=== PATIENT | female | born 1980 | race Two or more races ===

== ENCOUNTER → 2019-04-15 | Outpatient (CLI) | payer MEDICAID ==
[2019-04-15 12:34] LABS: CHOLESTEROL 149.61 mg/dL (0-200); TRIGLYCERIDES 79 mg/dL (<150)
[2019-04-15 12:52] LABS: DIRECT LDL 105 mg/dL (<100)
== END ==
LOC: OD 11:31
PROVIDERS: ATTEND Psychiatry & Neurology Psychiatry
DX: F41.0 Panic disorder [episodic paroxysmal anxiety] (principal)
CPT/HCPCS: 36415; 80061; 83036

== ENCOUNTER → 2019-07-01 | Day surgery (SDC) | payer MEDICAID ==
[~2019-07-01] MED LIST: LIDOCAINE 1% INJ-PF (10 MG/ML) 30 ML SDV ONE
--- NOTE | 2019-07-01 16:02 | RADIOLOGY REPORT (SQ) ---
EXAM DESCRIPTION: FLUORO/NEEDLE PLACEMENT; ARTHRO SHOULDER INJECTION COMPLETED DATE/TIME: 07/01/2019 1:35 pm REASON FOR STUDY: M75.01 ADHESIVE CAPSULITIS OF RIGHT SHOULDER M75.01 ADHESIVE CAPSULITIS OF RIGHT SHOULDER COMPARISON: None. FLUOROSCOPY TIME: 0.2 minutes. 1 images saved to PACS. LIMITATIONS: None. PROCEDURE: Procedure, risks, benefits and alternatives explained to patient who then gave written co nsent. The right shoulder was marked and a time out was called for correct procedure verification. P osterior entry site marked using fluoroscopic guidance. Shoulder prepped and draped using sterile te chnique. Local anesthesia achieved using 1% lidocaine injection. Hypodermic needle introduced into the joint space under direct fluoroscopic visualization. Non-ionic contrast instilled to confirm intr a-articular position. Dilute gadolinium solution then injected. Needle removed and entry site covere d with sterile bandage. No immediate complications noted. TECHNIQUE: Digital images acquired during fluoroscopy and stored on PACS. Patient immediately take n to the MR suite for additional imaging. INJECTION LOCATION: Posterior right shoulder. CONTRAST TYPE AND AMOUNT: 1 mL Omnipaque and 8 mL Dotarem/Saline mixture. IMPRESSION: SUCCESSFUL NEEDLE PLACEMENT AND INJECTION FOR RIGHT SHOULDER MR ARTHROGRAM USING POSTERI OR APPROACH. COMMENT: Quality ID [id number]: Final reports for procedures using fluoroscopy that document radiation exp osure indices, or exposure time and number of fluorographic images (if radiation exposure indices are not available) TECHNICAL DOCUMENTATION: JOB ID: [id number] [employer]- All Rights Reserved Reading location - IP/workstation name: [email or web address]
--- NOTE | 2019-07-02 11:20 | RADIOLOGY REPORT (SQ) ---
EXAM DESCRIPTION: MRI RT UPPER JOINT WITH COMPLETED DATE/TIME: 07/01/2019 1:42 pm REASON FOR STUDY: M75.01 ADHESIVE CAPSULITIS OF RIGHT SHOULDER M75.01 ADHESIVE CAPSULITIS OF RIGHT SHOULDER COMPARISON: None. TECHNIQUE: Right shoulder images acquired and stored on PACS. Oblique coronal, oblique sagittal, and axial imaging to include fat sensitive sequences as T1, water sensitive sequences as FST2/STIR, and contrast sensitive sequences as FST1. LIMITATIONS: None. FINDINGS: JOINT DISTENTION: Adequate. No loose bodies. Posterior extravasation. BONE MARROW AND CORTEX: No occult fracture or suspicious bone lesion. AC JOINT: No bulky overgrowth or widening or subacromial narrowing. GLENOHUMERAL JOINT: No subluxation or dislocation. No suggestion of focal chondral lesion. ROTATOR CUFF: Mild articular and bursal surface fraying is likely in the setting of tendinosis and pa rtial tear. No full-thickness breech. No cuff muscle atrophy. LABRUM AND BICEPS LABRAL COMPLEX: Mildly heterogeneous signal within the biceps anchor does not look like contrast. This includes along the chondrolabral interface. Suspect very low grade fraying. No biceps disruption or displacement. INFERIOR LABRAL COMPLEX: Intact. ADJACENT SOFT TISSUES: No regional mass or axillary adenopathy. OTHER: No other significant finding. IMPRESSION: 1. Mild cuff disease. No high-grade partial or full-thickness tear. 2. Low grade superior labral fraying. Higher grade slap tear is not suspected. TECHNICAL DOCUMENTATION: JOB ID: [id number] [employer]- All Rights Reserved Reading location - IP/workstation name: [email or web address]
== END ==
LOC: RAD 12:16
PROVIDERS: ATTEND Physician Assistant
DX: M75.01 Adhesive capsulitis of right shoulder (principal)
CPT/HCPCS: 73222; 77002; 23350; A9576; J3490

== ENCOUNTER 2020-07-09 08:39 | Emergency (ER) | payer MEDICAID ==
[2020-07-09] MEDS ORDERED: MAG HYDROX/AL HYDROX/SIMETH SUSP 30 ML UDCUP PO ONE (09:31)
[2020-07-09] MEDS ORDERED: METOCLOPRAMIDE HCL ORAL SOLN 10 MG/10 ML UDCUP PO ONE (09:31)
[2020-07-09] MEDS ORDERED: LIDOCAINE 2% VISCOUS SOLN 15 ML UDCUP PO ONE (09:31)
--- NOTE | 2020-07-09 09:37 | ER Document Report ---
ED Oral Problem - General Chief Complaint: Sore Throat Stated Complaint: SORE THROAT Time Seen by Provider: 07/09/20 09:08 Primary Care Provider: FRED HERNANDEZ PA-C [NO LOCAL MD] - Follow up as needed Mode of Arrival: Ambulatory Information source: Patient Notes: 07/09/20 09:23 - ED Nursing Note by GAGANDEEP MENDES [facility] Num: [id number] : 1980 Patient Age: 39 Patient to ED with complaint of sore throat x 2 months. Patient reports being seen by providers regarding sore throat and tested for COVID x 3 with negative results. Patient reports recent negative Strep, [place] and COVID within the past 2 weeks. Patient reports persistant sore throat. Patient reports recent abx treatment, reports no relief. Patient reports pain with attempt to eat/drink, reports she is able to swallow. Patient reports 5/5 pain. Patient reports no known exposure to COVID. Patient denies cough, n/v, fever/chills. Patient reports previous shoulder surgery and hysterectomy. Patient reports hx of asthma, reports use of PRN inhaler. Patient reports hx of chronic low back/knee pain and is currently being seen by pain management. Patient reports use of oxycodone for chronic pain. Patient has NKDA. Patient is AOx4 with even and unlabored respirations speaking in clear and complete sentences, nad noted. Ambulatory with even and steady gait. Denies CP or difficulty breathing. 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 She is also had multiple strep test and mononucleosis tests. She reports her mother was diabetic for least 30 years but she denies any history of diabetes. She states she has not been tested for this. She has been given antibiotics without resolution of her symptoms. Patient reports she takes pain medicine which she usually takes but this has not helped her sore throat. She has been using salt water and Chloraseptic mouthwash as well as Listerine but this only guerrero her throat. She denies any GERD symptoms. Her throat symptoms have caused her to have weight loss and poor appetite. Patient reports she tried using some ammonia and alcohol absolute around 3 months ago and this only burned her throat more. I warned her about using [id number] tips like this. TRAVEL OUTSIDE OF THE [place] IN LAST 30 DAYS: No - HPI Patient complains to provider of: Sore throat Onset: Other - x 4 months Quality of pain: Achy, Burning Severity: Moderate Pain Level: 3 Sore throat: Moderate Associated symptoms: Decreased appetite, Headache Similar symptoms previously: Yes Recently seen / treated by doctor/dentist: Yes - Dr Cm ? - Related Data Allergies/Adverse Reactions: No Known Allergies Allergy (Verified 05/17/15 19:10) Home Medications: Oxycodone Past Medical History - General Information source: Patient - Social History Smoking Status: Current Every Day Smoker Cigarette use (# per day): Yes - 1 pack/day Newports Chew tobacco use (# tins/day): No Smoking Education Provided: Yes Frequency of alcohol use: None Drug Abuse: Prescription drugs Lives with: Family - Patient reports her boyfriend and good friend do not have any sore throats themselves. Family History: Reviewed & Not Pertinent Patient has suicidal ideation: No Patient has homicidal ideation: No Pulmonary Medical History: Reports: Hx Asthma Neurological Medical History: Reports: Hx Migraine Musculoskeletal Medical History: Reports Hx Arthritis Psychiatric Medical History: Reports: Hx Bipolar Disorder, Hx Depression Past Surgical History: Reports: Hx Section - X 1, Hx Hysterectomy, Hx Tubal Ligation - Immunizations Hx Diphtheria, Pertussis, Tetanus Vaccination: Yes Review of Systems - Review of Systems Constitutional: See HPI, Recent illness EENT: See HPI, Ear pain - On the right only, Throat pain, Throat swelling, Mouth pain Cardiovascular: No symptoms reported Respiratory: No symptoms reported Gastrointestinal: No symptoms reported Genitourinary: No symptoms reported Female Genitourinary: No symptoms reported Musculoskeletal: No symptoms reported Skin: No symptoms reported Hematologic/Lymphatic: No symptoms reported Neurological/Psychological: No symptoms reported -: Yes All other systems reviewed and negative Physical Exam - Vital signs Vitals: Temp Pulse Resp BP Pulse Ox 98.3 F 85 16 121/84 100 07/09/20 09:22 07/09/20 09:22 07/09/20 09:22 07/09/20 09:22 07/09/20 09:22 Interpretation: Normal - General General appearance: Appears well, Alert - HEENT Head: Normocephalic, Atraumatic Eyes: Normal Pupils: PERRL External canal: Normal Tympanic membrane: Serous effusion - On right TM Sinus: Normal Nasal: Other - Right nares with ring Mouth/Lips: Other - dry Mucous membranes: Dry Pharynx: Erythema, Uvular edema Neck: Normal - Respiratory Respiratory status: No respiratory distress Chest status: Nontender Breath sounds: Normal Chest palpation: Normal - Cardiovascular Rhythm: Regular Heart sounds: Normal auscultation Murmur: No - Abdominal Inspection: Normal Distension: No distension Bowel sounds: Normal Tenderness: Nontender Organomegaly: No organomegaly - Rectal Hemorrhoids: Other - Deferred - Genitourinary Bimanuel exam: Other - Deferred - Back Back: Normal, Nontender - Extremities General upper extremity: Normal inspection, Nontender, Normal color, Normal ROM, Normal temperature General lower extremity: Normal inspection, Nontender, Normal color, Normal ROM, Normal temperature, Normal weight bearing. No: Brielle's sign - Neurological Neuro grossly intact: Yes Cognition: Normal Orientation: AAOx4 [place] Coma Scale Eye Opening: Spontaneous [place] Coma Scale Verbal: Oriented [place] Coma Scale Motor: Obeys Commands [place] Coma Scale Total: 15 Speech: Normal Motor strength normal: LUE, RUE, LLE, RLE Sensory: Normal - Psychological Associated symptoms: Normal affect, Normal mood - Skin Skin Temperature: Warm Skin Moisture: Dry Skin Color: Normal Course - Vital Signs Vital signs: Temp Pulse Resp BP Pulse Ox 98.8 F 73 20 131/78 H 100 07/09/20 10:47 07/09/20 10:47 07/09/20 10:47 07/09/20 10:47 07/09/20 10:47 - Laboratory Laboratory results interpreted by me: 07/09/20 09:40 POC Glucose 112 H Discharge - Discharge Clinical Impression: Esophagitis Pharyngitis Qualifiers: Pharyngitis/tonsillitis etiology: unspecified etiology Qualified Code(s): J02.9 - Acute pharyngitis, unspecified Condition: Stable Disposition: HOME, SELF-CARE Instructions: Esophagitis ([facility]), Sore Throat ([facility]) Additional Instructions: Avoid using Listerine alcohol Chloraseptic or salt water rinses at this time; may advise gargle and swish and swallow with olive oil and take medications as directed. Apply Bactroban to nose nightly for 1 week. May want to discontinue any kind of painting to avoid methylene chloride exposure. Definitely do not use any ammonia and alcohol gargles like you have tried in the past. Prescriptions: Mupirocin [Bactroban 2% Ointment 22 gm] 1 applic NASL HSP PRN #1 tube PRN Reason: Sucralfate [Carafate 1 gm Tablet] 1 gm PO ACHS #120 tablet Fluconazole [Diflucan] 150 mg PO DAILY #2 tablet Famotidine [Pepcid 20 mg Tablet] 20 mg PO BID #12 tablet Referrals: FRED HERNANDEZ PA-C [NO LOCAL MD] - Follow up as needed
[2020-07-09] MEDS ORDERED: FLUCONAZOLE 100 MG TABLET PO ONE (10:28)
[2020-07-09 10:47] VITALS: BP 131/78
[2020-07-09 15:46] LABS: A TYPE INFLUENZA AG NEGATIVE (NEGATIVE); B INFLUENZA AG NEGATIVE (NEGATIVE)
== END 2020-07-09 10:46 | disposition home or self-care (01) ==
LOC: ER 08:39
DX: K20.90 Esophagitis, unspecified without bleeding (principal); J02.9 Acute pharyngitis, unspecified; R13.10 Dysphagia, unspecified; G89.29 Other chronic pain; Z79.899 Other long term (current) drug therapy; J45.909 Unspecified asthma, uncomplicated; F17.210 Nicotine dependence, cigarettes, uncomplicated; R63.0 Anorexia; R51.9 Headache, unspecified
CPT/HCPCS: 99283; 87070; 87880; 82962; 87804; J3490 ×4